=== PATIENT | male | born 1950 | race Caucasian/White ===

== ENCOUNTER 2016-12-05 13:09 | Emergency (ER) | payer MEDICARE, OTHER ==
[2016-12-05 13:39] VITALS: BP 75/56
--- NOTE | 2016-12-05 13:57 | ER Document Report ---
ED General - General Chief Complaint: Fall Stated Complaint: FALL WRIST PAIN Time Seen by Provider: 12/05/16 13:25 Notes: Patient is a 66-year-old male with a history of congestive heart failure, insulin diabetic, defibrillator placement, LVAD, 3 CVAs, multiple TIAs s/p fall a couple of hours ago. Pt states that he was out in the yard with his dogs when he ran in to 2 copperheads. One started coming towards him when he fell backwards hitting his head, low back, and injuring left wrist. Pt denies any snake bite. Pt denies losing consciousness. Pt states that his LVAD tech ran through all of the troubleshoot options and his LVAD is operating normally. Besides the wrist pain and mild low back pain, pt states that he is otherwise feeling well and was told to come to the ED as a precaution due to his coumadin. Denies any fever, URI, sore throat, Headache, ear pain, facial pain, neck pain, cp, syncope, palpitations, dyspnea, cough, wheeze, abd pain, n/v/d, hematuria, dysuria. Pt was recently treated for an infected cyst to his back and is still on antibiotics. He has a f/u scheduled for next week with his PCM. Pt had the LVAD placed Oct 27 2016. Allergy to codeine and benadryl. Colonoscopy in September 2016, negative. TRAVEL OUTSIDE OF THE [place] IN LAST 30 DAYS: No - Related Data Allergies/Adverse Reactions: codeine Allergy (Verified 12/05/16 13:20) diphenhydramine [From Benadryl] Allergy (Verified 12/05/16 13:20) Past Medical History - Social History Smoking Status: Never Smoker Chew tobacco use (# tins/day): No Frequency of alcohol use: None Drug Abuse: None Family History: Reviewed & Not Pertinent Patient has suicidal ideation: No Patient has homicidal ideation: No - Past Medical History Cardiac Medical History: Reports: Hx Congestive Heart Failure, Hx Heart Attack, Hx Hypertension Pulmonary Medical History: Reports: Hx COPD Renal/ Medical History: Denies: Hx Peritoneal Dialysis Past Surgical History: Reports: Hx Cardiac Surgery - Immunizations Hx Diphtheria, Pertussis, Tetanus Vaccination: Yes Review of Systems - Review of Systems Notes: REVIEW OF SYSTEMS: CONSTITUTIONAL : Denies fever, chills, or sweats. Denies recent illness. EENT: Denies eye, ear, throat, or mouth pain or symptoms. Denies nasal or sinus congestion or discharge. Denies throat, tongue, or mouth swelling or difficulty swallowing. CARDIOVASCULAR: Denies chest pain. Denies palpitations or racing or irregular heart beat. Denies ankle edema. RESPIRATORY: Chronic SOB. Denies cough, cold, or chest congestion. Denies difficulty breathing, or wheezing. GASTROINTESTINAL: Denies abdominal pain or distention. Denies nausea, vomiting , or diarrhea. Denies blood in vomitus, stools, or per rectum. Denies black, tarry stools. Denies constipation. GENITOURINARY: Denies difficulty urinating, painful urination, burning, frequency, blood in urine, or discharge. MUSCULOSKELETAL: see hpi SKIN: Denies rash, lesions or sores. NEUROLOGICAL: Denies confusion or altered mental status. Denies passing out or loss of consciousness. Denies dizziness or lightheadedness. Denies headache. Denies weakness or paralysis or loss of use of either side. Denies problems with gait or speech. Denies sensory loss, numbness, or tingling. Denies seizures. PSYCHIATRIC: Denies anxiety/depression. ALL OTHER SYSTEMS REVIEWED AND NEGATIVE. Dictation was performed using [employer] voice recognition software Physical Exam - Vital signs Vitals: Resp 18 12/05/16 13:19 Notes: PHYSICAL EXAMINATION: GENERAL: Well-appearing, well-nourished and in no acute distress. Has battery pack on for his LVAD. HEAD: Atraumatic, normocephalic. No george sign. No facial/cranial tenderness. EYES: Pupils equal round and reactive to light, extraocular movements intact, sclera anicteric, conjunctiva are normal. No raccoon eyes ENT: EAC clear b/l. TM's intact b/l without erythema, fluid, or perforation. Nares patent and without discharge. oropharynx clear without exudates. No tonsilar hypertrophy or erythema. Moist mucous membranes. No sinus tenderness. No hemotympanum. No CSF discharge NECK: Normal range of motion, supple without lymphadenopathy. Non-tender. No rigidity. NEXUS criteria insignificant. Chest: Non-tender to palp. Defibrillator palpated. LUNGS: Breath sounds clear to auscultation bilaterally and equal. No wheezes rales or rhonchi. HEART: Regular rate and rhythm without murmurs, rubs, gallops due to hum of the LVAD that is able to be heard. ABDOMEN: Soft, nontender, nondistended abdomen. No guarding, no rebound. No masses appreciated. Normal bowel sounds present. No CVA tenderness bilaterally. bandage where surgery took place for LVAD, no active signs of infection present. Surgical scars noted. No active infection noted. Non- tender. Back: + mild erythemic (1cm) area where cyst was opened, bandage placed, no purulent d/c or streaks. No ecchymosis, trauma, or deformity noted. No CVAT b/ l. + mild tenderness to the L4-5 midline. FROM to passive/active. Strength 5+/ 5. Reflexes 2+. Sensation intact distally. Left wrist: + tenderness to the left distolateral radius. No scaphoid tenderness. No ecchymosis, swelling, or step-offs. FROM to passive/active. Strength 4+/5 due to pain. Neurovascularly intact distal. Extremities: 1+ pitting edema b/l. No peripheral pulses (due to LVAD). Capillary refill less than 3 seconds. NEUROLOGICAL: Cranial nerves grossly intact. Normal speech, normal gait. Normal sensory, motor exams. Reflexes 2+ throughout. PSYCH: Normal mood, normal affect. SKIN: Warm, Dry, normal turgor, no rashes or lesions noted. Course - Re-evaluation Re-evalutation: 12/05/16 16:10 Patient is an afebrile, well-hydrated, 66yo male who presents with a left wrist fracture, LBP s/p fall this morning. CT of the head was negative. L-spine did not show any acute fracture/dislocation. Lt wrist xr showed "impaction type fracture of the distal radius with associated avulsion type fracture of the ulnar styloid process." CBC showed hgb of 8.8, microcytic anemia. Occult negative. No correlating symptoms to indicate bleed (i.e. chest pains, abd pain , flank pain, sob, dyspnea, hematuria, ecchymosis). K+ mildly low at 3.5. Pt takes 20meq KCl daily. INR 1.72. Will hold off on increasing/adding dose due to low risk of still a bleed somewhere that may turn a small bleed into a large bleed. UA neg. UC pending. We will place a volar wrist splint to the left wrist. Recheck with PCM in 2-3 days to review above lab findings and recheck. Consult with Orthopedics in 5-7 days as able for fxMacy RODRIGUEZ protocol and other instructions as reviewed. Return to the ED with any worsening pain, swelling, numbness/tingling, muscle weakness, CP, sob, dyspnea, abd pain, n/v, hematuria, hematochezia, melena, LUIS, changes in vision/mentation, difficulty with speech, or development of fever. Patient/ in agreement. Case reviewed with Dr. Berger who is in agreement with plan/discharge. - Vital Signs Vital signs: Temp Pulse Resp BP Pulse Ox 98.1 F 96 16 75/56 L 96 12/05/16 13:35 12/05/16 13:35 12/05/16 13:35 12/05/16 13:35 12/05/16 13:35 - Laboratory Result Diagrams: 12/05/16 14:00 12/05/16 14:00 Laboratory results interpreted by me: 12/05/16 12/05/16 12/05/16 14:00 14:00 14:00 RBC 3.42 L Hgb 8.8 L Hct 27.8 L MCH 25.9 L MCHC 31.9 L RDW 17.6 H Seg Neutrophils % 81.6 H Lymphocytes % 8.5 L PT 21.2 H APTT 36.5 H Potassium 3.5 L Discharge - Discharge Clinical Impression: Hypokalemia Wrist fracture Qualifiers: Encounter type: initial encounter Fracture type: closed Laterality: left Qualified Code(s): S62.102A - Fracture of unspecified carpal bone, left wrist, initial encounter for closed fracture Fall Qualifiers: Encounter type: initial encounter Qualified Code(s): W19.XXXA - Unspecified fall, initial encounter Low back pain Qualifiers: Chronicity: acute Back pain laterality: midline Sciatica presence: without sciatica Qualified Code(s): M54.5 - Low back pain Anemia Qualifiers: Anemia type: iron deficiency Iron deficiency anemia type: unspecified iron deficiency Qualified Code(s): D50.9 - Iron deficiency anemia, unspecified Condition: Stable Disposition: HOME, SELF-CARE Additional Instructions: Fractured Radius and Ulna Both bones of the forearm, the radius and the ulna, are fractured. This type of fracture is typically caused by falling onto the outstretched hand. The fractures are not serious, however, and should heal well with adequate protection. Your physician's evaluation shows the bones are now in good position to heal. A cast or splint is used to protect the fractures. For the first few days after the injury, the arm should be elevated and ice packed. Most often, a splint is used first, with a cast later on. Healing takes from four to eight weeks, depending on the age of the patient and the seriousness of the broken bones. Your doctor has explained the treatment plan. It's important that you follow up as instructed to prevent complications. Call the doctor or return at once if severe pain or swelling occur, or if the hand becomes numb, swollen, or discolored. Rest, Ice, Compression, Elevation Use splint as directed Tylenol as needed F/u with your PCM (Dr. Villalobos) in 2-3 days for a recheck for your low hemoglobin , potassium, INR. Consider consult(s) with Orthopedics in 5-7 days for a recheck of wrist fracture. Return to the ED with any worsening pain, swelling, numbness/tingling, muscle weakness, Chest pain, shortness of breath, trouble breathing, abdominal pain, n/ v, blood in urine, hematochezia- blood in stool, melena- coffee-ground stool, Headache, changes in vision/mentation, difficulty with speech, or development of fever. Referrals: [facility] [Provider Group] - Follow up as needed
[2016-12-05 14:31] LABS: ABSOLUTE BASOPHILS # (AUTO) 0.1 10^3/uL (0.0-0.2); ABSOLUTE EOSINOPHILS # (AUTO) 0.2 10^3/uL (0.0-0.6); ABSOLUTE LYMPHOCYTES (AUTO) 0.8 10^3/uL (0.5-4.7); ABSOLUTE MONOCYTES (AUTO) 0.7 10^3/uL (0.1-1.4); ABSOLUTE NEUT (AUTO) 8.1 10^3/uL (1.7-8.2); BASOPHILS % (AUTO) 0.6 % (0-2); HEMATOCRIT 27.8 % (37.9-51.0); HEMOGLOBIN 8.8 g/dL (13.5-17.0); HGB HCT DIFFERENCE -1.4; LYMPHOCYTES % (AUTO) 8.5 % (13-45); MEAN CORPUSCULAR HEMOGLOBIN 25.9 pg (27.0-33.4); MEAN CORPUSCULAR HGB CONC 31.9 g/dL (32.0-36.0); MEAN CORPUSCULAR VOLUME 81 fl (80-97); MONOCYTES % (AUTO) 7.3 % (3-13); RED BLOOD COUNT 3.42 10^6/uL (4.35-5.55); RED CELL DISTRIBUTION WIDTH 17.6 % (11.5-14.0); SEGMENTED NEUTROPHILS % (AUTO) 81.6 % (42-78); WHITE BLOOD COUNT 9.9 10^3/uL (4.0-10.5)
[2016-12-05 14:37] LABS: PROTHROMBIN TIME 21.2 SEC (11.4-15.4)
[2016-12-05 14:38] LABS: PARTIAL THROMBOPLASTIN TIME 36.5 SEC (23.5-35.8)
[2016-12-05 14:53] LABS: ALANINE AMINOTRANSFERASE 41 U/L (21-72); ALBUMIN 3.6 g/dL (3.5-5.0); ALKALINE PHOSPHATASE 118 U/L (38-126); ANION GAP 11 (5-19); ASPARTATE AMINO TRANSFERASE 33 U/L (17-59); BILIRUBIN,DIRECT 0.4 mg/dL (0.0-0.4); BILIRUBIN,TOTAL 0.8 mg/dL (0.2-1.3); BLOOD UREA NITROGEN 17 mg/dL (7-20); CALCIUM 8.4 mg/dL (8.4-10.2); CARBON DIOXIDE 30 mmol/L (22-30); CHLORIDE 101 mmol/L (98-107); CREATININE RESULT 0.93 mg/dL (0.52-1.25); GLUCOSE 104 mg/dL (75-110); POTASSIUM 3.5 mmol/L (3.6-5.0); SODIUM 142.1 mmol/L (137-145); TOTAL PROTEIN 6.8 g/dL (6.3-8.2)
--- NOTE | 2016-12-05 15:05 | RADIOLOGY REPORT (SQ) ---
EXAM DESCRIPTION: CT HEAD WITHOUT COMPLETED DATE/TIME: 12/05/2016 2:49 pm REASON FOR STUDY: Fall, on coumadin COMPARISON: None. TECHNIQUE: Axial images acquired through the brain without intravenous contrast. Images reviewed wi th bone, brain and subdural windows. Images stored on PACS. All CT scanners at this facility use dose modulation, iterative reconstruction, and/or weight based d osing when appropriate to reduce radiation dose to as low as reasonably achievable (ALARA). [facility]: Dose Right [facility]: CareDose [facility]: Dose Right [facility]: Teradose 4D [facility]: Smart Inforama RADIATION DOSE: Up-to-date CT equipment and radiation dose reduction techniques were employed. CTDIv ol: 64.6 mGy. DLP: 1292 mGy-cm. mGy. LIMITATIONS: None. FINDINGS: VENTRICLES: Normal size and contour. CEREBRUM: No masses. No hemorrhage. No midline shift. Normal beltran/white matter differentiation. N o evidence for acute infarction. CEREBELLUM: No masses. No hemorrhage. No alteration of density. No evidence for acute infarction. EXTRAAXIAL SPACES: No fluid collections. No masses. ORBITS AND GLOBE: No intra- or extraconal masses. Normal contour of globe without masses. CALVARIUM: No fracture. PARANASAL SINUSES: No fluid or mucosal thickening. SOFT TISSUES: No mass or hematoma. OTHER: No other significant finding. IMPRESSION: NORMAL BRAIN CT WITHOUT CONTRAST. TECHNICAL DOCUMENTATION: JOB ID: [id number] Quality ID # [id number]: Final reports with documentation of one or more dose reduction techniques (e.g., Au tomated exposure control, adjustment of the mA and/or kV according to patient size, use of iterative reconstruction technique) 2010 [email or web address]- All Rights Reserved
--- NOTE | 2016-12-05 15:32 | RADIOLOGY REPORT (SQ) ---
EXAM DESCRIPTION: L SPINE WHOLE COMPLETED DATE/TIME: 12/05/2016 3:08 pm REASON FOR STUDY: Fall, low back pain, near L4 COMPARISON: None. NUMBER OF VIEWS: Five views including obliques. TECHNIQUE: AP, lateral, oblique, and sacral radiographic images acquired of the lumbar spine. LIMITATIONS: None. FINDINGS: MINERALIZATION: Normal. SEGMENTATION: Normal. No transitional anatomy. ALIGNMENT: Normal. VERTEBRAE: Maintained height. No fracture or worrisome bone lesion. DISCS: Preserved height. There is some very minimal anterior osteophytic lipping in the lumbar spine with more pronounced anterior osteophytic lipping in the lower thoracic spine. POSTERIOR ELEMENTS: Pedicles and facets are intact. No pars defect or posterior arch defects. HARDWARE: None in the spine. PARASPINAL SOFT TISSUES: Normal. PELVIS: Intact as visualized. No fractures or worrisome bone lesions. SI joints intact. OTHER: Vascular calcifications are identified. IMPRESSION: No significant vertebral compression or disc space reduction is seen. Minimal anterior osteophytic lipping in the lumbar spine with more pronounced anterior osteophytic lipping in the thor acic spine. Other findings as noted above TECHNICAL DOCUMENTATION: JOB ID: [id number] [employer]- All Rights Reserved
--- NOTE | 2016-12-05 15:34 | RADIOLOGY REPORT (SQ) ---
EXAM DESCRIPTION: WRIST LEFT 2 VIEWS COMPLETED DATE/TIME: 12/05/2016 3:12 pm REASON FOR STUDY: Fall, wrist pain COMPARISON: None. NUMBER OF VIEWS: Three views. TECHNIQUE: AP, lateral, and oblique radiographic images acquired of the left wrist. LIMITATIONS: None. FINDINGS: MINERALIZATION: Normal. BONES: There is an impaction type fracture of the distal radius with associated avulsion type fractur e of the ulnar styloid process. SOFT TISSUES: No soft tissue swelling. No foreign body. OTHER: Vascular calcifications are identified. IMPRESSION: Impaction type fracture of the distal radius with associated avulsion type fracture of t he ulnar styloid process. Other findings as noted above TECHNICAL DOCUMENTATION: JOB ID: [id number] [employer]- All Rights Reserved
[2016-12-05 16:09] LABS: APPEARANCE,URINE CLEAR; BILIRUBIN,URINE NEGATIVE (NEGATIVE); GLUCOSE, URINE NEGATIVE (NEGATIVE); KETONES,URINE NEGATIVE (NEGATIVE); LEUKOCYTE ESTERASE,URINE NEGATIVE (NEGATIVE); NITRITE,URINE NEGATIVE (NEGATIVE); PROTEIN,URINE NEGATIVE (NEGATIVE); URINE SPECIFIC GRAVITY 1.004; UROBILINOGEN,URINE NEGATIVE mg/dL (<2.0)
== END 2016-12-05 17:20 | disposition home or self-care (01) ==
LOC: ER 13:09
PROC: 2W3DX1Z Immobilization of Left Lower Arm using Splint (ICD-10-PCS; principal; 2016-12-05)
DX: S52.592A Other fractures of lower end of left radius, initial encounter for closed fracture (principal); S52.612A Displaced fracture of left ulna styloid process, initial encounter for closed fracture; W19.XXXA Unspecified fall, initial encounter; Y93.89 Activity, other specified; M54.5 Low back pain; D50.9 Iron deficiency anemia, unspecified; B99.9 Unspecified infectious disease; E87.6 Hypokalemia; R60.0 Localized edema; I25.2 Old myocardial infarction; I10 Essential (primary) hypertension; J44.9 Chronic obstructive pulmonary disease, unspecified; Z95.811 Presence of heart assist device; Z95.810 Presence of automatic (implantable) cardiac defibrillator; Z86.73 Personal history of transient ischemic attack (TIA), and cerebral infarction without residual deficits; Z79.01 Long term (current) use of anticoagulants; Z79.899 Other long term (current) drug therapy; Z88.5 Allergy status to narcotic agent; Z88.8 Allergy status to other drugs, medicaments and biological substances; Z98.890 Other specified postprocedural states
CPT/HCPCS: 36415; 70450; 72110; 80053; 81001; 82272; 85025; 85610; 85730; 87086; 87088; 87186; 99284

== ENCOUNTER → 2016-12-12 | Outpatient (CLI) | payer MEDICARE, OTHER ==
[2016-12-12 13:16] LABS: ABSOLUTE BASOPHILS # (AUTO) 0.1 10^3/uL (0.0-0.2); ABSOLUTE EOSINOPHILS # (AUTO) 0.4 10^3/uL (0.0-0.6); ABSOLUTE LYMPHOCYTES (AUTO) 0.8 10^3/uL (0.5-4.7); ABSOLUTE MONOCYTES (AUTO) 0.7 10^3/uL (0.1-1.4); EOSINOPHILS % (AUTO) 4.3 % (0-6); HEMATOCRIT 28.7 % (37.9-51.0); HGB HCT DIFFERENCE -1.7; MEAN CORPUSCULAR HEMOGLOBIN 25.1 pg (27.0-33.4); MEAN CORPUSCULAR HGB CONC 31.3 g/dL (32.0-36.0); MEAN CORPUSCULAR VOLUME 80 fl (80-97); MONOCYTES % (AUTO) 8.1 % (3-13); RED BLOOD COUNT 3.58 10^6/uL (4.35-5.55); RED CELL DISTRIBUTION WIDTH 18.3 % (11.5-14.0); SEGMENTED NEUTROPHILS % (AUTO) 77.6 % (42-78); WHITE BLOOD COUNT 9.1 10^3/uL (4.0-10.5)
[2016-12-12 13:40] LABS: ANION GAP 11 (5-19); BLOOD UREA NITROGEN 15 mg/dL (7-20); CALCIUM 9.1 mg/dL (8.4-10.2); CARBON DIOXIDE 26 mmol/L (22-30); CHLORIDE 103 mmol/L (98-107); CREATININE RESULT 0.87 mg/dL (0.52-1.25); GLUCOSE 125 mg/dL (75-110); POTASSIUM 4.1 mmol/L (3.6-5.0); SODIUM 140.2 mmol/L (137-145)
== END ==
LOC: OD 12:13
PROVIDERS: ATTEND Internal Medicine Cardiovascular Disease
DX: I42.9 Cardiomyopathy, unspecified (principal)
CPT/HCPCS: 36415; 80048; 85025

== ENCOUNTER → 2016-12-19 | Outpatient (CLI) | payer MEDICARE, OTHER ==
[2016-12-19 15:55] LABS: ANION GAP 12 (5-19); BLOOD UREA NITROGEN 19 mg/dL (7-20); CALCIUM 9.1 mg/dL (8.4-10.2); CARBON DIOXIDE 28 mmol/L (22-30); CHLORIDE 101 mmol/L (98-107); CREATININE RESULT 1.07 mg/dL (0.52-1.25); GLUCOSE 99 mg/dL (75-110); SODIUM 140.6 mmol/L (137-145)
== END ==
LOC: OD 15:02
PROVIDERS: ATTEND Internal Medicine Cardiovascular Disease
DX: I42.9 Cardiomyopathy, unspecified (principal)
CPT/HCPCS: 36415; 80048

== ENCOUNTER 2017-03-06 11:00 | Emergency (ER) | payer MEDICARE ==
--- NOTE | 2017-03-06 11:13 | ER Document Report ---
ED Respiratory Problem - General TRAVEL OUTSIDE OF THE [place] IN LAST 30 DAYS: No <LENA WEBB - Last Filed: 03/06/17 14:42> <MORGAN LAWRENCE - Last Filed: 03/06/17 17:09> - General Stated Complaint: SHORTNESS OF BREATH Time Seen by Provider: 03/06/17 11:07 - HPI Notes: This is a 67-year-old male with history of CHF and left ventricular assist device that presents with shortness of breath for the last 3 days. He was sent here to get transported basically to [place] where his commercial sewing instructor is. Increasing dyspnea particularly with exertion. No new pain. He saw his commercial sewing instructor Dr. Ness today and noted the patient did not look good so [facility] was contacted and the patient is to be transported there. Patient denies any chest pain. No fever. He has had no hematemesis. He does have some black stools but states that he is on iron. No new cough or cold symptoms. ( LENA WEBB) - Related Data Allergies/Adverse Reactions: codeine Allergy (Verified 03/06/17 13:02) diphenhydramine [From Benadryl] Allergy (Verified 03/06/17 13:02) Past Medical History - Social History Smoking Status: Never Smoker Family History: Reviewed & Not Pertinent - Past Medical History Cardiac Medical History: Reports: Hx Congestive Heart Failure, Hx Heart Attack, Hx Hypertension Pulmonary Medical History: Reports: Hx COPD Renal/ Medical History: Denies: Hx Peritoneal Dialysis Past Surgical History: Reports: Hx Cardiac Surgery - Immunizations Hx Diphtheria, Pertussis, Tetanus Vaccination: Yes <LENA WEBB - Last Filed: 03/06/17 14:42> Review of Systems - Review of Systems -: Yes All other systems reviewed and negative <LENA WEBB - Last Filed: 03/06/17 14:42> Physical Exam <LENA WEBB - Last Filed: 03/06/17 14:42> <MORGAN LAWRENCE - Last Filed: 03/06/17 17:09> - Vital signs Vitals: BP 106/68 03/06/17 11:15 Notes: Please see nurse's note (LENA WEBB) - Notes Notes: Physical Exam: LVAD 5.7 L/min GENERAL: VS as per nursing doc. chronically ill appearing, well-nourished and in no acute distress. HEAD: Atraumatic, normocephalic. EYES: Pupils equal round and reactive to light, extraocular movements intact, sclera anicteric, no conjunctival injection or discharge. Mild periorbital edema is noted ENT: Nares patent, oropharynx clear without exudates. Moist mucous membranes. NECK: Normal range of motion, supple without lymphadenopathy. LUNGS: Slightly tachypneic, breath sounds clear to auscultation bilaterally and equal. No wheezes rales or rhonchi. HEART: Normal S1S2. Regular rate and rhythm. Equal peripheral pulses. ABDOMEN: Soft, non-tender EXTREMITIES: Normal range of motion. No calf tenderness. Negative Homans. 2+ pitting edema NEUROLOGICAL: Cranial nerves grossly intact. Normal speech. Normal sensory and motor exams. No gross cerebellar abnormalities. PSYCH: Normal mood, normal affect. SKIN: Warm, dry, fairly pale and slight jaundice. (LENA WEBB) Course - Laboratory Result Diagrams: 03/06/17 12:27 03/06/17 11:12 <LENA WEBB - Last Filed: 03/06/17 14:42> - Laboratory Result Diagrams: 03/06/17 12:27 03/06/17 11:12 <MORGAN LAWRENCE - Last Filed: 03/06/17 17:09> - Re-evaluation Re-evalutation: 03/06/17 11:33 Spoke with Sarah Castaneda who is in charge of the LVAD program, [phone]. Dr. Luis Eduardo Bernard will be accepting the patient as long as he is hemodynamically stable to be transported to [place]. I am to call back after labs are back. 03/06/17 12:39 I performed a Hemoccult the patient has dark melanotic soft stool. He admits to black stools but states he thinks this is just part of the iron that he has been taking. 03/06/17 13:16 Updated Sarah Castaneda at [facility] regarding laboratory findings. We are arranging transport as their flight system is down. (LENA WEBB) 03/06/17 16:17 Transport here for patient. Blood hanging. Patient is still persistently tachycardic and hyptensive but not worse than when he first presented. Patient is stable at this time, but could become worse in transport, as is always a danger. It is felt, regardless, that it is in his best interest at this time to be transferred due to his severe anemia, supratherapeutic INR, and underlying medical conditions that he be transferred via ALS at this time. (MORGAN LAWRENCE) - Vital Signs Vital signs: Temp Pulse Resp BP Pulse Ox 98.3 F 109 H 24 H 97/62 L 100 03/06/17 15:51 03/06/17 15:51 03/06/17 15:51 03/06/17 15:51 03/06/17 15:51 - Laboratory Laboratory results interpreted by me: 03/06/17 03/06/17 03/06/17 11:12 11:12 12:27 WBC RBC Hgb Hct MCH MCHC RDW Seg Neuts % (Manual) Lymphocytes % (Manual) Monocytes % (Manual) Metamyelocytes % Abs Neuts (Manual) PT 43.0 H Sodium 133.1 L Carbon Dioxide 21 L BUN 66 H Glucose 333 H Direct Bilirubin 0.6 H ALT 18 L Total Protein 5.0 L Albumin 2.9 L Crossmatch See Detail 03/06/17 12:27 WBC 22.0 H RBC 1.78 L Hgb 4.3 L* Hct 14.6 L* MCH 24.2 L MCHC 29.5 L RDW 21.8 H Seg Neuts % (Manual) 92 H Lymphocytes % (Manual) 4 L Monocytes % (Manual) 2 L Metamyelocytes % 2 H Abs Neuts (Manual) 20.7 H PT Sodium Carbon Dioxide BUN Glucose Direct Bilirubin ALT Total Protein Albumin Crossmatch Critical Care Note - Critical Care Note Total time excluding time spent on procedures (mins): 35 <LENA WEBB - Last Filed: 03/06/17 14:42> Discharge <LENA WEBB - Last Filed: 03/06/17 14:42> <MORGAN LAWRENCE - Last Filed: 03/06/17 17:09> - Discharge Clinical Impression: Anemia, GI bleed, Coumadin Coagulopathy Condition: Fair Disposition: [facility] Referrals: SHARIFA RAMÍREZ PA [Primary Care Provider] - Follow up as needed
[2017-03-06 12:04] LABS: ALANINE AMINOTRANSFERASE 18 U/L (21-72); ALBUMIN 2.9 g/dL (3.5-5.0); ALKALINE PHOSPHATASE 53 U/L (38-126); ANION GAP 12 (5-19); ASPARTATE AMINO TRANSFERASE 17 U/L (17-59); BILIRUBIN,DIRECT 0.6 mg/dL (0.0-0.4); BLOOD UREA NITROGEN 66 mg/dL (7-20); CALCIUM 8.5 mg/dL (8.4-10.2); CARBON DIOXIDE 21 mmol/L (22-30); CHLORIDE 100 mmol/L (98-107); CREATININE RESULT 1.09 mg/dL (0.52-1.25); DIGOXIN 1.14 ng/mL (0.8-2.0); GLUCOSE 333 mg/dL (75-110); POTASSIUM 4.4 mmol/L (3.6-5.0); SODIUM 133.1 mmol/L (137-145)
--- NOTE | 2017-03-06 12:26 | RADIOLOGY REPORT (SQ) ---
EXAM DESCRIPTION: CHEST SINGLE VIEW COMPLETED DATE/TIME: 03/06/2017 11:55 am REASON FOR STUDY: Dyspnea COMPARISON: 04/11/2015 EXAM PARAMETERS: NUMBER OF VIEWS: One view. TECHNIQUE: Single frontal radiographic view of the chest acquired. RADIATION DOSE: NA LIMITATIONS: None. FINDINGS: LUNGS AND PLEURA: No opacities, masses or pneumothorax. No pleural effusion. MEDIASTINUM AND HILAR STRUCTURES: No masses. Contour normal. HEART AND VASCULAR STRUCTURES: Stable in appearance. BONES: No acute findings. HARDWARE: Battery pack and leads remain in place along with sternotomy wires. Hardware overlies the left lower chest wall with leads extending into the abdomen as well. OTHER: No other significant finding. IMPRESSION: Postsurgical changes as described. No acute findings in the chest. TECHNICAL DOCUMENTATION: JOB ID: [id number]
[2017-03-06 12:41] LABS: HGB HCT DIFFERENCE -1.7; MEAN CORPUSCULAR HEMOGLOBIN 24.2 pg (27.0-33.4); MEAN CORPUSCULAR HGB CONC 29.5 g/dL (32.0-36.0); MEAN CORPUSCULAR VOLUME 82 fl (80-97); RED BLOOD COUNT 1.78 10^6/uL (4.35-5.55); RED CELL DISTRIBUTION WIDTH 21.8 % (11.5-14.0)
[2017-03-06] MEDS ORDERED: NORMAL SALINE 250 ML IV PRN ×2 (12:55)
[2017-03-06 12:59] LABS: HEMATOCRIT 14.6 % (37.9-51.0)
[2017-03-06 13:00] LABS: HEMOGLOBIN 4.3 g/dL (13.5-17.0)
[2017-03-06 13:10] LABS: BASOPHILS % (MANUAL) 0 % (0-2); EOSINOPHILS % (MANUAL) 0 % (0-6); LYMPHOCYTES % (MANUAL) 4 % (13-45); TOTAL CELLS COUNTED 100
[2017-03-06 13:12] LABS: ACANTHOCYTES 1+; ANISOCYTOSIS 3+; OVALOCYTES 2+; POIKILOCYTOSIS 2+; POLYCHROMASIA 2+; TOXIC GRANULATION SLIGHT
[2017-03-06] MEDS ORDERED: PANTOPRAZOLE SODIUM 40 MG VIAL IV ONE (13:21)
[2017-03-06 16:04] VITALS: BP 97/62
--- NOTE | 2017-03-06 20:33 | EKG REPORT ---
SEVERITY:- ABNORMAL ECG - ATRIAL FLUTTER FIBRILLATION VENTRICULAR TRIGEMINY NONSPECIFIC INTRAVENTRICULAR CONDUCTION DELAY ABNRM R PROG, CONSIDER ASMI OR LEAD PLACEMENT BORDERLINE ST DEPRESSION, LATERAL LEADS : Confirmed by: Anca Martin 06-Mar-2017 20:33:20
[2017-03-07 15:05] LABS: PATH REVIEW PATHOLOGIST REVIEWED
== END 2017-03-06 16:14 | disposition short-term general hospital (02) ==
LOC: ER 11:00
DX: K92.2 Gastrointestinal hemorrhage, unspecified (principal); D64.9 Anemia, unspecified; R06.02 Shortness of breath; I50.9 Heart failure, unspecified; Z79.01 Long term (current) use of anticoagulants
CPT/HCPCS: 93005; 99291; 96374; 86900; 86901; 36415; 36430; 86850; 80162; 85025; 85610; 82272; 80053; 84484; 86920; 71010; 93010; P9016; C9113; S0164

== ENCOUNTER 2017-10-08 12:49 | Emergency (ER) | payer MEDICARE, OTHER ==
--- NOTE | 2017-10-08 12:57 | ER Document Report ---
ED Cardiac - General Stated Complaint: DEFIBRILLATOR ISSUES Time Seen by Provider: 10/08/17 12:57 Mode of Arrival: Ambulatory Information source: Patient Notes: 67-year-old gentleman with past medical history of ischemic cardiomyopathy with poor ejection fraction who has left ventricular assist device placed at [facility], atrial fibrillation on Coumadin, COPD, diabetes, chronic kidney disease as well as hypertension who presented today for evaluation of defibrillator firing. His initial discharge was 3 days ago, single time. Today patient had 2 consecutive discharges of defibrillator, one at 11:00, one at 12:30. Patient otherwise denies any chest pain, patient is short of breath. Patient is compliant with all of his medications. Patient is here for evaluation. TRAVEL OUTSIDE OF THE [place] IN LAST 30 DAYS: No - Related Data Allergies/Adverse Reactions: codeine Allergy (Verified 10/08/17 15:12) diphenhydramine [From Benadryl] Allergy (Verified 10/08/17 15:12) Past Medical History - Social History Smoking Status: Former Smoker Family History: Reviewed & Not Pertinent - Past Medical History Cardiac Medical History: Reports: Hx Congestive Heart Failure, Hx Heart Attack, Hx Hypertension Pulmonary Medical History: Reports: Hx COPD Renal/ Medical History: Denies: Hx Peritoneal Dialysis Past Surgical History: Reports: Hx Cardiac Surgery - Immunizations Hx Diphtheria, Pertussis, Tetanus Vaccination: Yes Review of Systems - Review of Systems Notes: REVIEW OF SYSTEMS: CONSTITUTIONAL: -fevers, -chills EENT: -eye pain, -difficulty swallowing, -nasal congestion CARDIOVASCULAR: -chest pain, -syncope, + pacemaker problems and firing RESPIRATORY: -cough, + Shortness of breath GASTROINTESTINAL: -abdominal pain, -nausea, -vomiting, -diarrhea GENITOURINARY: -dysuria, -hematuria MUSCULOSKELETAL: -back pain, -neck pain SKIN: -rash or skin lesions. HEMATOLOGIC: -easy bruising or bleeding. LYMPHATIC: -swollen, enlarged glands. NEUROLOGICAL: -altered mental status or loss of consciousness, -headache, - neurologic symptoms PSYCHIATRIC: -anxiety, -depression. ALL OTHER SYSTEMS REVIEWED AND NEGATIVE Physical Exam - Vital signs Vitals: Resp 40 H 10/08/17 13:02 - Notes Notes: Reviewed vital signs and nursing note as charted by RN. CONSTITUTIONAL: Alert and oriented and responds appropriately to questions, appears chronically ill HEAD: Normocephalic; atraumatic EYES: PERRL ENT: normal nose; no rhinorrhea; dry mucous membranes; pharynx without lesions noted NECK: Supple without meningismus; non-tender; no cervical lymphadenopathy, no masses CARD: Tachycardia, irregularly irregular rhythm, unable to appreciate a murmur, LVAD appears to be working given the persistent mechanical noise, LVAD in good position, better is a well charge, no alarms RESP: Normal chest excursion without splinting or tachypnea; breath sounds clear and equal bilaterally ABD/GI: Normal bowel sounds; non-distended; soft, nontender BACK: The back appears normal and is non-tender to palpation EXT: Normal ROM in all joints; non-tender to palpation; no cyanosis, no effusions, mild pitting edema SKIN: Pale and ashy NEURO: Cranial nerves 3-12 intact. Motor strength 5/5 bilaterally. Sensation intact to touch bilaterally. No pronator drift. Finger to nose intact bilaterally PSYCH: The patient's mood and manner are appropriate. Grooming and personal hygiene are appropriate. Course - Re-evaluation Re-evalutation: 67-year-old gentleman presented today for evaluation of continues defibrillator firing Patient has history of severe heart failure with left ventricular assisted device that appears to be working appropriately Differential diagnoses includes arrhythmia, ventricular tachycardia, ventricular fibrillation, acute heart failure exacerbation, pneumonia, electrolyte abnormalities, cardiac ischemia, sepsis We will obtain basic lab work including CBC, CMP, lipase, electrolytes, chest x- ray, EKG, troponin We will interrogate the pacemaker with [employer] Supplemental oxygen given the patient has mild hypoxia given his history of COPD , patient has no wheezing, therefore no suspicion for exacerbation at present time 10/08/17 14:44 Spoke with transfer center to do, patient accepted to LVAD team under Dr. Joana Hoff We will work on logistics as well as transportation 10/08/17 15:06 Discussed the case with LVAD team, Chris Shane, recommended lidocaine drip We will start lidocaine drip Patient has liver enzyme derangements as well as elevated bilirubin, will obtain right upper quadrant ultrasound to rule out acute cholecystitis given new leukocytosis 10/08/17 15:41 Patient is accepted to [facility], awaiting transportation Awaiting right upper quadrant ultrasound 10/08/17 16:30 Due to transport team here at bedside, unfortunately patient unable to obtain ultrasound prior to departure Will ask patient to mention this to [facility] team when he arrived to the hospital Patient is stable for transfer - Vital Signs Vital signs: Temp Pulse Resp BP Pulse Ox 20 102/79 88 L 10/08/17 14:55 10/08/17 13:03 10/08/17 14:55 - Laboratory Result Diagrams: 10/08/17 13:25 10/08/17 13:25 Laboratory results interpreted by me: 10/08/17 10/08/17 10/08/17 13:25 13:25 13:25 WBC 16.2 H RBC 3.89 L Hgb 9.1 L Hct 27.6 L MCV 71 L MCH 23.3 L RDW 21.9 H Seg Neuts % (Manual) 93 H Band Neutrophils % 1 L Lymphocytes % (Manual) 5 L Monocytes % (Manual) 1 L Abs Neuts (Manual) 15.2 H PT 25.1 H Sodium 134.1 L Chloride 95 L BUN 36 H Creatinine 1.79 H Est GFR ( Amer) 46 L Est GFR (Non-Af Amer) 38 L Glucose 143 H Total Bilirubin 2.0 H Direct Bilirubin 1.0 H AST 103 H ALT 134 H Alkaline Phosphatase 165 H Albumin 3.0 L Lipase 365.3 H Urine Protein Urine Blood Urine Urobilinogen 10/08/17 15:05 WBC RBC Hgb Hct MCV MCH RDW Seg Neuts % (Manual) Band Neutrophils % Lymphocytes % (Manual) Monocytes % (Manual) Abs Neuts (Manual) PT Sodium Chloride BUN Creatinine Est GFR ( Amer) Est GFR (Non-Af Amer) Glucose Total Bilirubin Direct Bilirubin AST ALT Alkaline Phosphatase Albumin Lipase Urine Protein 30 H Urine Blood LARGE H Urine Urobilinogen 4.0 H - Diagnostic Test Radiology reviewed: Image reviewed - EXAM DESCRIPTION: CHEST 2 VIEWS COMPLETED DATE/TIME: 10/08/2017 1:55 pm REASON FOR STUDY: pain COMPARISON: NUMBER OF VIEWS: One view. TECHNIQUE: Single frontal radiographic view of the chest acquired. LIMITATIONS: None. FINDINGS: LUNGS AND PLEURA: No opacities, masses or pneumothorax. No pleural effusion. MEDIASTINUM AND HILAR STRUCTURES: No masses or contour abnormality. HEART AND VASCULATURE: Cardiac enlargement. Mild Vascular congestion. BONES: No acute findings. HARDWARE: AICD and cardiac assist device. OTHER: No other significant finding. IMPRESSION: CARDIAC ENLARGEMENT. MILD VASCULAR CONGESTION. TECHNICAL DOCUMENTATION: JOB ID: [id number]- All Rights Reserved Reading location - IP/workstation name: [email or web address] Dictated by : LAVELLE CERNA MD [id number] CC: LOVE MACARIO MD - EKG Interpretation by Me Additional EKG results interpreted by me: 10/08/17 15:44 EKG interpretation 12:58 PM Tachycardia, patient has atrial fibrillation, rate 113 prolonged QRS, nonspecific intraventricular conduction delay Borderline R-wave progression in anterior leads, no ST elevation No significant changes compared to prior EKG Critical Care Note - Critical Care Note Comments: Critical Care Time: 75 minutes Critical care provider statement: Critical care time was exclusive of: Separately billable procedures and treating other patients and teaching time Critical care was time spent personally by me on the following activities: Blood draw for specimens, development of treatment plan with patient or surrogate, evaluation of patient's response to treatment, examination of patient , obtaining history from patient or surrogate, ordering and performing treatments and interventions, ordering and review of laboratory studies, ordering and review of radiographic studies, pulse oximetry, re-evaluation of patient's condition and review of old charts I assumed direction of critical care for this patient from another provider in my specialty: no Discharge - Discharge Clinical Impression: Defibrillator discharge, History of left ventricular assist device (LVAD), Leukocytosis, Elevated liver enzymes, Hyperbilirubinemia, CKD (chronic kidney disease) Condition: Stable Disposition: [facility]
[2017-10-08 13:42] LABS: HEMATOCRIT 27.6 % (37.9-51.0); HEMOGLOBIN 9.1 g/dL (13.5-17.0); MEAN CORPUSCULAR HEMOGLOBIN 23.3 pg (27.0-33.4); MEAN CORPUSCULAR HGB CONC 32.9 g/dL (32.0-36.0); MEAN CORPUSCULAR VOLUME 71 fl (80-97); PLATELET COUNT 232 10^3/uL (150-450); RED BLOOD COUNT 3.89 10^6/uL (4.35-5.55); RED CELL DISTRIBUTION WIDTH 21.9 % (11.5-14.0); WHITE BLOOD COUNT 16.2 10^3/uL (4.0-10.5)
[2017-10-08 13:50] LABS: INTERNATIONAL RATION (INR) 2.16; PROTHROMBIN TIME 25.1 SEC (11.4-15.4)
[2017-10-08 13:59] LABS: ALANINE AMINOTRANSFERASE 134 U/L (21-72); ALKALINE PHOSPHATASE 165 U/L (38-126); ANION GAP 12 (5-19); ASPARTATE AMINO TRANSFERASE 103 U/L (17-59); BLOOD UREA NITROGEN 36 mg/dL (7-20); CALCIUM 8.7 mg/dL (8.4-10.2); CARBON DIOXIDE 27 mmol/L (22-30); CHLORIDE 95 mmol/L (98-107); GLUCOSE 143 mg/dL (75-110); LIPASE 365.3 U/L (23-300); SODIUM 134.1 mmol/L (137-145); TOTAL PROTEIN 6.5 g/dL (6.3-8.2)
--- NOTE | 2017-10-08 14:06 | RADIOLOGY REPORT (SQ) ---
EXAM DESCRIPTION: CHEST 2 VIEWS COMPLETED DATE/TIME: 10/08/2017 1:55 pm REASON FOR STUDY: pain COMPARISON: 04/11/2015 NUMBER OF VIEWS: One view. TECHNIQUE: Single frontal radiographic view of the chest acquired. LIMITATIONS: None. FINDINGS: LUNGS AND PLEURA: No opacities, masses or pneumothorax. No pleural effusion. MEDIASTINUM AND HILAR STRUCTURES: No masses or contour abnormality. HEART AND VASCULATURE: Cardiac enlargement. Mild Vascular congestion. BONES: No acute findings. HARDWARE: AICD and cardiac assist device. OTHER: No other significant finding. IMPRESSION: CARDIAC ENLARGEMENT. MILD VASCULAR CONGESTION. TECHNICAL DOCUMENTATION: JOB ID: [id number] [employer]- All Rights Reserved Reading location - IP/workstation name: [email or web address]
[2017-10-08 14:11] LABS: CREATINE KINASE MB 0.38 ng/mL (<4.55)
[2017-10-08 14:12] LABS: ABSOLUTE LYMPHOCYTES# (MANUAL) 0.8 10^3/uL (0.5-4.7); ABSOLUTE MONOCYTES # (MANUAL) 0.2 10^3/uL (0.1-1.4); ABSOLUTE NEUTROPHILS# (MANUAL) 15.2 10^3/uL (1.7-8.2); ANISOCYTOSIS 3+; BAND NEUTROPHILS % (MANUAL) 1 % (3-5); BASOPHILS % (MANUAL) 0 % (0-2); BURR CELLS SLIGHT; EOSINOPHILS % (MANUAL) 0 % (0-6); HYPOCHROMASIA 1+; LYMPHOCYTES % (MANUAL) 5 % (13-45); MONOCYTES % (MANUAL) 1 % (3-13); OVALOCYTES 1+; POIKILOCYTOSIS 1+; POLYCHROMASIA SLIGHT; SEGMENTED NEUTROPHILS % (MAN) 93 % (42-78); TOTAL CELLS COUNTED 100; TOXIC VACUOLATION PRESENT
[2017-10-08 14:13] LABS: PLATELET COMMENT ADEQUATE
[2017-10-08 14:15] LABS: TROPONIN I 0.375 ng/mL
[2017-10-08 14:25] VITALS: BP 102/79
[2017-10-08] MEDS ORDERED: LIDOCAINE HCL/D5W/PF 2,000 MG/250 ML RTUINJ IV PRN (15:04)
[2017-10-08 15:23] LABS: APPEARANCE,URINE CLEAR; BILIRUBIN,URINE NEGATIVE (NEGATIVE); COLOR,URINE YELLOW; GLUCOSE, URINE NEGATIVE (NEGATIVE); KETONES,URINE NEGATIVE (NEGATIVE); LEUKOCYTE ESTERASE,URINE NEGATIVE (NEGATIVE); NITRITE,URINE NEGATIVE (NEGATIVE); PROTEIN,URINE 30 mg/dL (NEGATIVE); URINE SPECIFIC GRAVITY 1.008
--- NOTE | 2017-10-08 15:59 | EKG REPORT ---
SEVERITY:- DEFECTIVE ECG - SINUS TACHYCARDIA AND FREQUENT PACS NONSPECIFIC INTRAVENTRICULAR CONDUCTION DELAY BORDERLINE R WAVE PROGRESSION, ANTERIOR LEADS : Confirmed by: Sanya Ardon MD 08-Oct-2017 15:58:46
--- NOTE | 2017-10-08 17:38 | ER Document Report ---
Doctor's Note Notes: 10/08/17 17:38 [facility] transport team at bedside. Patient is stable for transfer. Family and transport team was educated about LVAD care as well as were given numbers to call if there is any issues in transport. Patient is stable for transfer to [facility].
== END 2017-10-08 17:55 | disposition short-term general hospital (02) ==
LOC: ER 12:49
DX: T82.897A Other specified complication of cardiac prosthetic devices, implants and grafts, initial encounter (principal); Z95.811 Presence of heart assist device; D72.829 Elevated white blood cell count, unspecified; R74.8 Abnormal levels of other serum enzymes; E80.6 Other disorders of bilirubin metabolism; I12.9 Hypertensive chronic kidney disease with stage 1 through stage 4 chronic kidney disease, or unspecified chronic kidney disease; N18.9 Chronic kidney disease, unspecified; R06.02 Shortness of breath; I48.91 Unspecified atrial fibrillation; Z79.01 Long term (current) use of anticoagulants; J44.9 Chronic obstructive pulmonary disease, unspecified; E11.9 Type 2 diabetes mellitus without complications; Z87.891 Personal history of nicotine dependence; I25.2 Old myocardial infarction
CPT/HCPCS: 93005; 99291; 99292; 96365; 96366; 36415; 82553; 83690; 83735; 85025; 85610; 80053; 81001; 84484; 71046; 93010; J2001